=== PATIENT | male | born 1985 | race Hispanic/Latino ===

== ENCOUNTER 2017-02-08 02:33 | Emergency (ER) | payer OTHER ==
[~2017-02-08] VITALS: Ht 180.3 cm; Wt 68.5 kg
[2017-02-08] MEDS ORDERED: KEFLEX500 MG PO (03:58)
[2017-02-08 04:08] LABS: HEMATOCRIT 39.4 % (38.0-50.0); MCH 30.5 PG (29.0-34.0); MCHC 35.3 G/DL (30.0-36.0); MCV 86.4 FL (86-99); MEAN PLAT.VOLUME 11.4 uM^3 (9.0-12.4); PLATELET COUNT 170 K/uL (156-360); RBC DIS.WIDTH-CV 12.5 % (11.8-14.6); RBC DIS.WIDTH-SD 39.5 % (39-53); RED BLOOD COUNT 4.56 M/uL (4.00-5.50)
[2017-02-08 04:25] LABS: CHLORIDE 107 mEq/L (99-109); SODIUM 141 mEq/L (136-147)
[2017-02-08 04:26] LABS: GLUCOSE 94 mg/dL (70-99)
[2017-02-08 04:28] LABS: ANION GAP 5 MEQ/L (2-14)
[2017-02-08 04:30] LABS: GFR ESTIMATE (CALCULATED) > 59 mL/min/
[2017-02-08 04:31] LABS: UREA NITROGEN (BUN) 15 mg/dL (9-23)
[2017-02-08 04:40] VITALS: BP 118/75
== END 2017-02-08 04:41 ==
LOC: EME 02:33
PROVIDERS: Emergency Medicine
PROC: 3E0234Z Introduction of Serum, Toxoid and Vaccine into Muscle, Percutaneous Approach (ICD-10-PCS; principal; 2017-02-08)
DX: S02.32XA Fracture of orbital floor, left side, initial encounter for closed fracture (principal); S00.83XA Contusion of other part of head, initial encounter; S80.812A Abrasion, left lower leg, initial encounter; S00.511A Abrasion of lip, initial encounter; S01.102A Unspecified open wound of left eyelid and periocular area, initial encounter; M54.9 Dorsalgia, unspecified; Y04.2XXA Assault by strike against or bumped into by another person, initial encounter; Y93.84 Activity, sleeping; Y92.143 Cell of prison as the place of occurrence of the external cause; Z23 Encounter for immunization
CPT/HCPCS: 70450; 70486; 80048; 85027; 99281; 99284; J0690; J1885